=== PATIENT | female | born 1995 | race African-American/Black ===

== ENCOUNTER 2024-10-30 09:55 | Outpatient (REF) | payer OTHER, SELFPAY ==
--- NOTE | ~2024-10-30 | US_ITS ---
CLINICAL HISTORY: RLQ PAIN, H O FIBROIDS US pelvis transabdominal and transvaginal with color Doppler Comparison: None Findings: Transabdominal scanning performed for overall anatomy. Transvaginal scanning performed for additional detail. LMP: 10/27/2024 Anteverted uterus, heterogeneous echotexture measuring 8.4 x 4.3 x 6.4 cm. Normal endometrium, measuring 9.4 mm thickness Uterine fibroids: Superior fundal intramural 3.7 x 3.4 x 3.5 cm Anterior fundal intramural 3.1 x 2.5 x 2.5 cm Anterior fundal intramural 1.9 x 1.5 x 1.6 cm 4. Left fundal subserosal 5.0 x 3.7 x 4.1 cm The right ovary measures, 2.4 x 1.1 x 2.0 cm. Normal sonographic appearance right ovary. Normal color Doppler The left ovary measures, 3.2 x 2.1 x 2.6 cm. Normal sonographic appearance left ovary. Normal color Doppler No adnexal masses or fluid collections. No free fluid. Impression: 1. Leiomyomatous uterus. 2. Normal thickness endometrium. 3. Normal ovaries/adnexa. This document has been electronically signed by: Alberto Bonilla MD on 10/30/2024 12:19:14
== END 2024-10-30 09:56 | disposition home or self-care (01) ==
LOC: HO.UMASIMG 09:55
PROVIDERS: Visit Provider Nurse Practitioner
DX: R10.30 Lower abdominal pain, unspecified (principal)
CPT/HCPCS: 76830; 76856

== ENCOUNTER → 2024-10-30 10:00 | Outpatient (BNV) | payer OTHER, SELFPAY | PROVIDERS: Visit Provider Radiology Diagnostic Radiology | DX: D25.9 Leiomyoma of uterus, unspecified (principal) | CPT/HCPCS: 76830; 76856 ==